=== PATIENT | male | born 1965 | race Asian ===

== ENCOUNTER 2018-04-22 16:27 | Emergency (ER) | payer OTHER ==
[~2018-04-22] VITALS: Ht 180.3 cm; Wt 106.6 kg
[~2018-04-22 16:27] MED LIST: ALLO100T22 PO; COLCRYS 0.6MG0.6 MG OR; DICL50TA PO; GLIP10TA55 PO; LISI10TA11 PO; LORTAB 7.5-3251 TAB PO; METF500T PO; METOPROLOL25 M1 OR; NEURONTIN 100M100 MG OR
[2018-04-22 18:02] LABS: POTASSIUM 4.5 mmol/L (3.6-5.2)
[2018-04-22 18:22] LABS: PLATELET COUNT 274 K/uL (142-355)
[2018-04-22 18:58] VITALS: BP 139/93; TEMP 98
== END 2018-04-22 18:58 | disposition home or self-care (01) ==
LOC: ED 16:27
PROVIDERS: Family Medicine
DX: M10.9 Gout, unspecified (principal)
CPT/HCPCS: 80053; 81000; 84550; 85027; 96374; 96375; 99284; J1885; J2930

== ENCOUNTER 2019-01-07 09:50 | Emergency (ER) | payer OTHER ==
[~2019-01-07] VITALS: Ht 180.3 cm; Wt 105.7 kg
[~2019-01-07 09:50] MED LIST changes: -COLCRYS 0.6MG0.6 MG OR; +COLCRYS 0.6MG0.6 MG PO; -METOPROLOL25 M1 OR; +METOPROLOL25 M1 PO
[2019-01-07 09:56] VITALS: TEMP 98.6
[2019-01-07] MEDS ORDERED: ALLO300T23 PO (10:09)
[2019-01-07] MEDS ORDERED: METF100038 PO (10:10)
[2019-01-07] MEDS ORDERED: HYDR10TA47A PO (10:12)
[2019-01-07] MEDS ORDERED: CYCL10TA35 PO (10:15)
[2019-01-07] MEDS ORDERED: AMBIEN5 MG PO (10:15)
[2019-01-07 10:32] LABS: PLATELET COUNT 415 K/uL (142-355)
[2019-01-07 10:38] LABS: POTASSIUM 5.2 mmol/L (3.6-5.2)
[2019-01-07 11:59] VITALS: BP 126/74
== END 2019-01-07 11:59 | disposition home or self-care (01) ==
LOC: ED 09:50
PROVIDERS: Emergency Medicine
DX: M10.9 Gout, unspecified (principal)
CPT/HCPCS: 36415; 80053; 84550; 85027; 96374; 99284; J2930

== ENCOUNTER 2019-05-12 13:20 | Outpatient (CLI) | payer OTHER ==
[~2019-05-12 13:20] MED LIST changes: +ALLO300T23 PO; +AMBIEN5 MG PO; +CYCL10TA35 PO; +HYDR10TA47A PO; +METF100038 PO
[2019-05-12 13:54] LABS: PLATELET COUNT 278 K/uL (142-355)
[2019-05-12 14:30] LABS: POTASSIUM 5.1 mmol/L (3.6-5.2)
== END 2019-05-12 20:18 | disposition home or self-care (01) ==
LOC: LAB 13:20
PROVIDERS: Nurse Practitioner Family
DX: M54.89 Other dorsalgia (principal); N52.8 Other male erectile dysfunction; E11.9 Type 2 diabetes mellitus without complications; I10 Essential (primary) hypertension; F32.9 Major depressive disorder, single episode, unspecified; M10.9 Gout, unspecified; G89.29 Other chronic pain; F51.01 Primary insomnia; N40.0 Benign prostatic hyperplasia without lower urinary tract symptoms; E55.9 Vitamin D deficiency, unspecified
CPT/HCPCS: 80053; 80061; 82306; 83036; 84153; 84439; 84443; 84481; 85027

== ENCOUNTER 2019-07-31 05:26 | Emergency (ER) | payer OTHER ==
[~2019-07-31] VITALS: Ht 180.3 cm; Wt 106.6 kg
[2019-07-31 05:26] VITALS: TEMP 97.9
[2019-07-31 05:59] LABS: POTASSIUM 5.1 mmol/L (3.6-5.2); SODIUM 134 mmol/L (136-145)
[2019-07-31 06:04] LABS: PLATELET COUNT 291 K/uL (142-355)
[2019-07-31 13:30] VITALS: BP 103/70
== END 2019-07-31 13:49 | disposition home or self-care (01) ==
LOC: ED 05:26
PROVIDERS: Family Medicine
DX: R07.89 Other chest pain (principal); F14.10 Cocaine abuse, uncomplicated; Q79.1 Other congenital malformations of diaphragm; R10.84 Generalized abdominal pain
CPT/HCPCS: 80053; 80307; 80320; 81000; 82550; 82553; 83880; 84484; 85027; 93005; 99284

== ENCOUNTER 2021-09-01 15:52 | Emergency (ER) | payer OTHER ==
[~2021-09-01] VITALS: Ht 180.3 cm; Wt 103.4 kg
[2021-09-01 17:51] LABS: PLATELET COUNT 298 K/uL (142-355)
[2021-09-01 17:56] LABS: POTASSIUM 4.7 mmol/L (3.6-5.2)
[2021-09-01 18:00] LABS: PARTIAL THROMBOPLASTIN TIME 27.6 SECONDS (24.5-33.6)
[2021-09-01 21:20] VITALS: BP 145/88; TEMP 98.1
== END 2021-09-01 21:25 | disposition home or self-care (01) ==
LOC: ED 15:52
PROVIDERS: Family Medicine
DX: F19.10 Other psychoactive substance abuse, uncomplicated (principal); F10.10 Alcohol abuse, uncomplicated; R07.89 Other chest pain; E11.649 Type 2 diabetes mellitus with hypoglycemia without coma; Z79.84 Long term (current) use of oral hypoglycemic drugs; Z51.81 Encounter for therapeutic drug level monitoring
CPT/HCPCS: 80053; 80143; 80179; 80307; 80320; 81000; 82550; 82948; 84484; 85027; 85610; 85730; 93005; 99283